=== PATIENT | female | born 2000 | race Caucasian/White ===

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

== ENCOUNTER 2019-09-08 11:34 | Emergency (ER) | payer MEDICAID ==
[~2019-09-08] VITALS: Ht 154.9 cm; Wt 48.6 kg
[2019-09-08 11:53] VITALS: BP 117/68
--- NOTE | 2019-09-08 14:33 | NUR ---
19 Y/O C/C RASH/ITCHINESS X1 DAY. PER PT DID NOT TAKE ANY MEDICINE FOR THE S/S. A:PNC,CHEETOHS. NO HX. NO RX. NO N/V/D. SITTING IN CHAIR B. STABLE.
[2019-09-08] MEDS ORDERED: DEXAMETHASONE 10 MG/ML VIAL PO ONE (15:10)
[2019-09-08] MEDS ORDERED: EPINEPHrine 1:1000 - 1 MG/ML AMP IM ONE (15:20)
[2019-09-08 16:11] VITALS: BP 120/68
--- NOTE | 2019-09-08 16:11 | NUR ---
Patient discharged with v/s stable. Written and verbal after care instructions given and explained. Patient alert, oriented and verbalized understanding of instructions. Ambulatory with steady gait. All questions addressed prior to discharge. ID band removed. Patient advised to follow up with PMD. Rx of PREDNISONE,LORATADINE,BENADRYL given. Patient educated on indication of medication including possible reaction and side effects. Opportunity to ask questions provided and answered.
== END 2019-09-08 16:11 | disposition home or self-care (01) ==
LOC: MED 11:34
DX: T78.40XA Allergy, unspecified, initial encounter (principal); Z88.1 Allergy status to other antibiotic agents; X58.XXXA Exposure to other specified factors, initial encounter
CPT/HCPCS: 96372; 99283; J0171; J1100; Q0163

== ENCOUNTER 2019-11-06 09:01 | Emergency (ER) | payer SELFPAY ==
[~2019-11-06] VITALS: Ht 154.9 cm; Wt 49.5 kg
[2019-11-06 09:03] VITALS: BP 111/63
--- NOTE | 2019-11-06 09:11 | NUR ---
Patient ambulated to bed 10 with family. RN evaluating patient at bedside.
[2019-11-06] MEDS ORDERED: diphenhydrAMINE 50 MG CAP PO ONE (09:15)
--- NOTE | 2019-11-06 09:20 | NUR ---
19 Y/F PRESENTS TO ED FOR ALLERGIC REACTION SINCE LAST NIGHT. PT REPORTS THE ONLY NEW THING SHE TOOK WAS FLONASE YESTERDAY FOR NASAL CONGESTION THAT SHE HAS HAD FOR 2 DAYS. HIVES, EDEMA AND REDNESS NOTED TO FACE, B ARMS LEGS, TORSO, B EYE SWELLING. PT REPORTS SHE TOOK BENADRYL LAST NIGHT. PT REPORTS HEAVY BREATHING. RR EVEN AND UNLABORED. LUNGS CLEAR. SKIN INTACT. RX- BENADRYL
--- NOTE | 2019-11-06 09:20 | NUR ---
PT PLACED ON PULSE OX AND 3 LEAD ECG.
--- NOTE | 2019-11-06 09:25 | NUR ---
PTS BOYFRIEND WILL BE DRIVING HER HOME. BF AT BEDSE. VS STABLE P-72, R-16 EVEN AND UNLABORED, O2-100
--- NOTE | 2019-11-06 10:13 | NUR ---
DR BAUER AT BEDSIDE
--- NOTE | 2019-11-06 10:26 | NUR ---
Patient discharged with v/s stable. Written and verbal after care instructions given and explained. Patient alert, oriented and verbalized understanding of instructions. Ambulatory with steady gait. All questions addressed prior to discharge. ID band removed. Patient advised to follow up with PMD. Rx of BEDADRYL, CLARITIN, PREDNISONE given. Patient educated on indication of medication including possible reaction and side effects. Opportunity to ask questions provided and answered. PT INSTRUCTED NOT TO DRIVE WHILE TAKING BENADRYL.
[2019-11-06 10:27] VITALS: BP 111/63
== END 2019-11-06 10:26 | disposition home or self-care (01) ==
LOC: MED 09:01
DX: L23.9 Allergic contact dermatitis, unspecified cause (principal)
CPT/HCPCS: 99283; Q0163

== ENCOUNTER 2019-11-07 00:07 | Emergency (ER) | payer SELFPAY ==
[~2019-11-07] VITALS: Ht 152.4 cm; Wt 49.4 kg
[2019-11-07 00:30] VITALS: BP 118/59
--- NOTE | 2019-11-07 00:33 | NUR ---
TO LOBBY A/W BED AMBULATORY
--- NOTE | 2019-11-07 01:48 | NUR ---
PATIENT LEFT WITHOUT BEING SEEN.
== END 2019-11-07 01:48 | disposition left against medical advice (07) ==
LOC: MED 00:07
DX: R21 Rash and other nonspecific skin eruption (principal); Z53.21 Procedure and treatment not carried out due to patient leaving prior to being seen by health care provider

== ENCOUNTER 2019-11-25 17:46 | Emergency (ER) | payer MEDICAID ==
[~2019-11-25] VITALS: Ht 152.4 cm; Wt 53.1 kg
[2019-11-25 18:13] VITALS: BP 113/62
--- NOTE | 2019-11-25 18:29 | NUR ---
19/F BIB SELF c/o bleeding per vagina , intermitent lower abdominal pain & r back pain & headache 05/13 x 3 days. piece of tissue came from vagina x 20 mins ago. LMP 09/26/19.
--- NOTE | 2019-11-25 19:02 | NUR ---
Hugh ray in [facility] - 11/25/19 at 1912 by [facility] PIECE OF TISSURE SENT TO LAB.
[2019-11-25 19:05] LABS: APPEARANCE,URINE SL CLOUDY (CLEAR); BILIRUBIN,URINE 1+ (NEGATIVE); BLOOD, URINE 3+ (NEGATIVE); COLOR,URINE YELLOW (YELLOW); LEUKOCYTE ESTERASE ,URINE NEGATIVE (NEGATIVE); NITRITE, URINE NEGATIVE (NEGATIVE); UGLUCOSE NEGATIVE (NEGATIVE)
--- NOTE | 2019-11-25 19:12 | NUR ---
PIECE OF TISSUE SENT TO LAB.
--- NOTE | 2019-11-25 19:15 | NUR ---
Pt report given to ARLEEN COHEN. Transfer of care at this time.
--- NOTE | 2019-11-25 19:17 | NUR ---
RECEIVED REPORT FROM NOEL KNAPP AND [facility].
[2019-11-25 19:48] LABS: RBC,URINE 50-80 /HPF (0-5); WBC,URINE NONE SEEN /HPF (0-5)
[2019-11-25 20:03] LABS: BASOPHILS # (AUTO) 0.1 K/uL (0.00-0.22); BASOPHILS % (AUTO) 0.8 % (0.0-2.0); EOSINOPHILS % (AUTO) 0.6 % (0.0-4.0); HEMATOCRIT 36.4 % (36-48); HEMOGLOBIN 12.2 g/dL (12.0-16.0); LYMPHOCYTES # (AUTO) 1.3 K/uL (2.5-16.5); LYMPHOCYTES % (AUTO) 20.5 % (20.5-51.1); MEAN CORPUSCULAR HEMOGLOBIN 32 pg (27-31); MEAN CORPUSCULAR HGB CONC 34 g/dL (33-37); MEAN CORPUSCULAR VOLUME 94.5 fL (80-94); MONOCYTES # (AUTO) 0.7 K/uL (0.8-1.0); MONOCYTES % (AUTO) 11.3 % (1.7-9.3); NEUTROPHILS # (AUTO) 4.3 K/uL (1.8-7.7); NEUTROPHILS % (AUTO) 66.8 % (42.2-75.2); PLATELET COUNT (AUTO) 259 K/uL (140-450); RED BLOOD CELL COUNT(AUTO) 3.85 MIL/uL (4.20-5.40); RED CELL DISTRIBUTION WIDTH 13.5 % (11.6-13.7); WHITE BLOOD COUNT (AUTO) 6.5 K/uL (4.5-11.0)
[2019-11-25 20:19] LABS: ANION GAP 11.9 (8-16); CARBON DIOXIDE 28.4 mmol/L (21-32); CREATININE 0.8 mg/dL (0.6-1.3); POTASSIUM 3.3 mmol/L (3.5-5.1)
[2019-11-25 21:40] VITALS: BP 104/63
--- NOTE | 2019-11-25 21:40 | NUR ---
Patient discharged with v/s stable. Provided with copy of labs and immaging report. Written and verbal after care instructions given and explained. Patient verbalized understanding. Ambulatory with steady gait. All questions addressed prior to discharge. Advised to follow up with PMD.
== END 2019-11-25 21:40 | disposition home or self-care (01) ==
LOC: MED 17:46
DX: O03.9 Complete or unspecified spontaneous abortion without complication (principal)
CPT/HCPCS: 36415; 76801; 80048; 81001; 81025; 84702; 85025; 86900; 86901; 88305; 99284; Q0092

== ENCOUNTER 2021-03-31 11:44 | Emergency (ER) | payer SELFPAY ==
[~2021-03-31] VITALS: Ht 160 cm; Wt 52.2 kg
[2021-03-31 11:46] VITALS: BP 129/63
--- NOTE | 2021-03-31 11:51 | NUR ---
PATIENT AMBULATED WITH STEADY GAIT TO BED 5.
--- NOTE | 2021-03-31 11:58 | NUR ---
TISH LONG AT BEDSIDE EVALUATING PT
--- NOTE | 2021-03-31 11:59 | NUR ---
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 PT RATES PAIN 9/10 THAT SHE DESCRIBES SHARP AND NONRADIATING. PT STATES PAIN IS WORSE WITH BREATHING. CAP REFILL <3 SECONDS, SPO2 100%. PT STATES THAT SHE HAS HAD INTERMITTENT CHEST PAIN X2 YRS AND STATES PAIN IS X5 WORSE AND TENDER ON PALPATION. DENIES N/V. PT A/O X4 WITH EVEN AND UNLABORED RESPIRATIONS. PT IN GOWN. NO PMH ALLERGIES: AMOXICILLIN
[2021-03-31] MEDS ORDERED: IBUPROFEN 600 MG TAB PO ONE (12:05)
--- NOTE | 2021-03-31 12:14 | NUR ---
EMT AT BEDSIDE FOR EKG
[2021-03-31] MEDS ORDERED: IBUP-1842 PO (12:56)
--- NOTE | 2021-03-31 13:10 | NUR ---
Patient discharged with v/s stable. Written and verbal after care instructions CHEST WALL PAIN given and explained. Patient alert, oriented and verbalized understanding of instructions. Ambulatory with steady gait. All questions addressed prior to discharge. ID band removed. Patient advised to follow up with PMD. Rx of IBUPROFEN given. Patient educated on indication of medication including possible reaction and side effects. Opportunity to ask questions provided and answered.
== END 2021-03-31 13:10 | disposition home or self-care (01) ==
LOC: MED 11:44
DX: S20.01XA Contusion of right breast, initial encounter (principal); X58.XXXA Exposure to other specified factors, initial encounter; Y93.89 Activity, other specified; Y92.89 Other specified places as the place of occurrence of the external cause; Y99.8 Other external cause status; Z88.1 Allergy status to other antibiotic agents
CPT/HCPCS: 71045; 71120; 93005; 99284

== ENCOUNTER 2021-07-07 15:36 | Emergency (ER) | payer SELFPAY ==
[~2021-07-07] VITALS: Ht 154.9 cm; Wt 47.4 kg
[~2021-07-07 15:36] MED LIST: IBUP-1842 PO
[2021-07-07 15:44] VITALS: BP 115/76
[2021-07-07] MEDS ORDERED: LACTATED RINGERS 2,000 ML IV ONE (16:10)
--- NOTE | 2021-07-07 17:00 | NUR ---
ULTRASOUND AT BEDSIDE
[2021-07-07 17:06] LABS: BASOPHILS # (AUTO) 0.1 K/uL (0.00-0.22); BASOPHILS % (AUTO) 0.8 % (0.0-2.0); EOSINOPHILS # (AUTO) 0.1 K/uL (0-0.4); EOSINOPHILS % (AUTO) 0.5 % (0.0-4.0); HEMOGLOBIN 13.8 g/dL (12.0-16.0); LYMPHOCYTES # (AUTO) 1.1 K/uL (2.5-16.5); LYMPHOCYTES % (AUTO) 10.7 % (20.5-51.1); MEAN CORPUSCULAR HEMOGLOBIN 32 pg (27-31); MEAN CORPUSCULAR HGB CONC 35 g/dL (33-37); MEAN CORPUSCULAR VOLUME 92.4 fL (80-94); MONOCYTES # (AUTO) 0.7 K/uL (0.8-1.0); MONOCYTES % (AUTO) 6.4 % (1.7-9.3); NEUTROPHILS # (AUTO) 8.8 K/uL (1.8-7.7); NEUTROPHILS % (AUTO) 81.6 % (42.2-75.2); PLATELET COUNT (AUTO) 319 K/uL (140-450); RED BLOOD CELL COUNT(AUTO) 4.32 MIL/uL (4.20-5.40); RED CELL DISTRIBUTION WIDTH 13.3 % (11.6-13.7); WHITE BLOOD COUNT (AUTO) 10.8 K/uL (4.8-10.8)
[2021-07-07 17:21] LABS: ALBUMIN 4.6 g/dL (3.4-5.0); ANION GAP 14.4 (8-16); CARBON DIOXIDE 24.7 mmol/L (21-32); CREATININE 0.8 mg/dL (0.6-1.3); POTASSIUM 3.1 mmol/L (3.5-5.1); TOTAL BILIRUBIN 0.8 mg/dL (0.0-1.0)
--- NOTE | 2021-07-07 17:28 | NUR ---
21/F BIB SELF WITH C/O LOWER ABDOMINAL CRAMPING AND NAUSEA AND VOMITING X2 DAYS. PATIENT STATES SHE IS APPROXIMATELY "3 WEEKS " AND STATES FOR THE LAST TWO DAYS SHE HAS HAD INTERMITTENT 8/10 ACHING LOWER ABDOMINAL PAIN ACCOMPANIED WITH EPISODES OF NAUSEA AND VOMITING. PATIENT DENIES BLOOD IN VOMIT, STATES VOMIT WAS "YELLOW" IN COLOR, DENIES CP, SOB, FEVER OR CHILLS. STATES SHE HAS HAD SOME URINARY BURNING AND LOWER BACK PAIN SINCE THIS MORNING. STATES SHE HAS NOT SEEN HER OB SINCE FINDING OUT SHE WAS .
[2021-07-07 18:47] LABS: APPEARANCE,URINE CLEAR (CLEAR); BILIRUBIN,URINE NEGATIVE (NEGATIVE); BLOOD, URINE NEGATIVE (NEGATIVE); COLOR,URINE YELLOW (YELLOW); LEUKOCYTE ESTERASE ,URINE TRACE (NEGATIVE); NITRITE, URINE NEGATIVE (NEGATIVE); UGLUCOSE NEGATIVE (NEGATIVE)
--- NOTE | 2021-07-07 18:50 | NUR ---
PATIENT AMBULATED TO RESTROOM WITH STEADY GAIT.
[2021-07-07 19:07] LABS: RBC,URINE 0-5 /HPF (0-5)
[2021-07-07 19:08] LABS: YEAST,URINE Few /HPF (None Seen)
--- NOTE | 2021-07-07 19:30 | NUR ---
Pt report given to MEGAN MENDOZA. Transfer of care at this time.
--- NOTE | 2021-07-07 19:30 | NUR ---
REPORT GIVEN TO NOEL GUZMAN FOR TRANSFER OF CARE
[2021-07-07] MEDS ORDERED: DOCO200C2 PO (19:42)
[2021-07-07] MEDS ORDERED: DOXY1TCP PO (19:42)
[2021-07-07] MEDS ORDERED: NITR100C7 PO (19:44)
[2021-07-07] MEDS ORDERED: POTASSIUM CHLORIDE 10 MEQ TABER PO ONE (19:45)
[2021-07-07 19:58] VITALS: BP 108/84
--- NOTE | 2021-07-07 19:58 | NUR ---
Patient discharged with v/s stable. Written and verbal after care instructions given and explained. Patient alert, oriented and verbalized understanding of instructions. Ambulatory with steady gait. All questions addressed prior to discharge. ID band removed. Patient advised to follow up with PMD. Rx of DHA, DICLEGIS, MACROBID given. Patient educated on indication of medication including possible reaction and side effects. Opportunity to ask questions provided and answered.
--- NOTE | 2021-07-07 20:08 | NUR ---
The patient's care was reviewed and supervised by ARLEEN GAITAN RN.
--- NOTE | 2021-07-10 19:24 | NUR ---
LATE ENTRY- LR IVF DISCONTINUED AT 190
== END 2021-07-07 19:58 | disposition home or self-care (01) ==
LOC: MED 15:36
DX: O21.9 Vomiting of pregnancy, unspecified (principal); O23.41 Unspecified infection of urinary tract in pregnancy, first trimester; E87.6 Hypokalemia; O26.891 Other specified pregnancy related conditions, first trimester; Z88.1 Allergy status to other antibiotic agents
CPT/HCPCS: 36415; 76817; 80053; 81001; 81025; 83690; 84702; 85025; 86900; 86901; 87086; 96360; 96361; 99284; J7120; Q0092

== ENCOUNTER 2022-03-15 17:53 | Emergency (ER) | payer OTHER ==
[~2022-03-15] VITALS: Ht 152.4 cm; Wt 58.1 kg
[~2022-03-15 17:53] MED LIST changes: +DOCO200C2 PO; +DOXY1TCP PO; +NITR100C7 PO
[2022-03-15 18:11] VITALS: BP 99/67
--- NOTE | 2022-03-15 20:10 | NUR ---
PT AMBULATED TO BED 9
--- NOTE | 2022-03-15 20:15 | NUR ---
22Y/O C/O OF DISCHARGE FROM SUTURE SITE FOR AND PAIN. CSECTION IN March IN [facility] ([place]). NO ANTIBIOTICS. TOOK IBUPROFEN AT HOME. DENIES N/V/D, SOB AND CHEST PAIN. A&OX4, SKIN INTACT EXCEPT INCISION, STEADY GAIT AND VITALS WNL. ALLERGY:AMOXICILLIN PMH: DENIES
[2022-03-15] MEDS ORDERED: [UNRECOGNIZED DRUG - CODE] PO (20:39)
[2022-03-15 21:00] VITALS: BP 99/67
--- NOTE | 2022-03-15 21:24 | NUR ---
Patient discharged with v/s stable. Written and verbal after care instructions given and explained. Patient alert, oriented and verbalized understanding of instructions. Ambulatory with steady gait. All questions addressed prior to discharge. ID band removed. Patient advised to follow up with PMD. Rx of MINOCYCLINE given. Patient educated on indication of medication including possible reaction and side effects. Opportunity to ask questions provided and answered.
== END 2022-03-15 21:24 | disposition home or self-care (01) ==
LOC: MED 17:53
DX: O86.00 Infection of obstetric surgical wound, unspecified (principal); Z88.1 Allergy status to other antibiotic agents; Z79.899 Other long term (current) drug therapy; Z98.890 Other specified postprocedural states
CPT/HCPCS: 99283

== ENCOUNTER 2022-09-08 20:52 | Emergency (ER) | payer MEDICAID ==
[~2022-09-08] VITALS: Ht 152.4 cm; Wt 54.4 kg
[~2022-09-08 20:52] MED LIST changes: +[UNRECOGNIZED DRUG - CODE] PO
[2022-09-08 21:05] VITALS: BP 113/73
--- NOTE | 2022-09-08 21:08 | NUR ---
TO LOBBY A/W BED AMBULATORY
[2022-09-08] MEDS ORDERED: FAMO-90 PO (21:34)
[2022-09-08] MEDS ORDERED: PRED20TA5 PO (21:34)
[2022-09-08] MEDS ORDERED: DIPH25TA53 PO (21:34)
[2022-09-08] MEDS ORDERED: predniSONE 20 MG TAB PO ONE (21:35)
[2022-09-08] MEDS ORDERED: FAMOTIDINE 20 MG TAB PO ONE (21:35)
--- NOTE | 2022-09-08 22:04 | NUR ---
PT TO BED 07. PER ADMITING PT CAME UP TO WINDOW TO SAY SHE WAS GETTING WORSE, PT HAD BEEN CALLED MULTIPLE TIMES TO BE MEDICATED WITH NO ANSWER, PT CALLED MY EMT TO BE PLACED IN BED AND NO ANSWER.
--- NOTE | 2022-09-08 22:07 | NUR ---
22 YO F BIB SELF WITH C/C OF ALLERGIC REACTION S/P EATING SYNTHETIC CHEESE X NOON. PT REPORTS 9/10 FULL BODY PAIN/STINGING. PT STATES SHE TOOK BENADRYL, HELPED A LOT THEN HIVES BEGAN TO SHOW AGAIN. PT HAS HIVES THROUGH OUT BODY. REPORTS THROAT ITCHINESS AND TIGHTNESS. PT SATING AT 99% ON ROOM AIR. ALLERGIES:AMOXICILLIN, SYNTHETIC CHEESE
--- NOTE | 2022-09-08 22:25 | NUR ---
22 Y/O F PRESENTS WITH ALLERGIC REACTION ALL OVER SINCE THIS MORNING DUE TO EATING SYNTHETIC CHEESE INSIDE OF A BURRITO FROM [facility]. PT DENIES ANY PAIN. A&OX4, SKIN INTACT. PMH-PT DENIES ALLERGIES- AMOXICILLIN, CHEETOS
--- NOTE | 2022-09-08 22:25 | NUR ---
Patient discharged with v/s stable. Written and verbal after care instructions given and explained. Patient alert, oriented and verbalized understanding of instructions. Ambulatory with steady gait. All questions addressed prior to discharge. ID band removed. Patient advised to follow up with PMD. Rx of DIPHENHYDRAMINE HCI, FAMOTIDINE, PREDNISONE given. Opportunity to ask questions provided and answered.
--- NOTE | 2022-09-08 23:10 | NUR ---
The patient's care was reviewed and supervised by Sophie Mckoy RN.
== END 2022-09-08 22:25 | disposition home or self-care (01) ==
LOC: MED 20:52
DX: L50.0 Allergic urticaria (principal)
CPT/HCPCS: 99284; J7512; Q0163

== ENCOUNTER 2023-04-14 11:10 | Emergency (ER) | payer MEDICAID ==
[~2023-04-14 11:10] MED LIST changes: +DIPH25TA53 PO; +FAMO-90 PO; +PRED20TA5 PO
== END 2023-04-14 11:56 | disposition left against medical advice (07) ==
LOC: MED 11:10
DX: R11.2 Nausea with vomiting, unspecified (principal); R10.9 Unspecified abdominal pain; Z53.21 Procedure and treatment not carried out due to patient leaving prior to being seen by health care provider

== ENCOUNTER 2023-05-08 14:41 | Emergency (ER) | payer MEDICAID ==
[~2023-05-08] VITALS: Ht 152.4 cm; Wt 49.9 kg
[2023-05-08 15:31] VITALS: BP 100/65; PULSE 81; RESP 18; TEMP 98.1; O2SAT 100
[2023-05-08 16:31] LABS: BASOPHILS # (AUTO) 0.1 K/uL (0.00-0.22); BASOPHILS % (AUTO) 0.5 % (0.0-2.0); EOSINOPHILS # (AUTO) 0.1 K/uL (0-0.4); EOSINOPHILS % (AUTO) 0.7 % (0.0-4.0); HEMATOCRIT 36.8 % (36-48); HEMOGLOBIN 12.5 g/dL (12.0-16.0); LYMPHOCYTES # (AUTO) 2.4 K/uL (2.5-16.5); MEAN CORPUSCULAR HEMOGLOBIN 31 pg (27-31); MEAN CORPUSCULAR HGB CONC 34 g/dL (33-37); MEAN CORPUSCULAR VOLUME 91.4 fL (80-94); MONOCYTES # (AUTO) 0.7 K/uL (0.8-1.0); MONOCYTES % (AUTO) 6.2 % (1.7-9.3); NEUTROPHILS # (AUTO) 7.8 K/uL (1.8-7.7); NEUTROPHILS % (AUTO) 70.6 % (42.2-75.2); PLATELET COUNT (AUTO) 287 K/uL (140-450); RED BLOOD CELL COUNT(AUTO) 4.03 MIL/uL (4.20-5.40); RED CELL DISTRIBUTION WIDTH 13.6 % (11.6-13.7)
[2023-05-08 16:57] LABS: ALBUMIN 3.5 g/dL (3.4-5.0); ANION GAP 11.3 (8-16); CALCIUM 8.7 mg/dL (8.5-10.1); CARBON DIOXIDE 27.2 mmol/L (21-32); CREATININE 0.7 mg/dL (0.6-1.3); POTASSIUM 3.5 mmol/L (3.5-5.1); TOTAL BILIRUBIN 0.2 mg/dL (0.0-1.0)
== END 2023-05-08 17:11 | disposition left against medical advice (07) ==
LOC: MED 14:41
DX: O26.891 Other specified pregnancy related conditions, first trimester (principal); R07.89 Other chest pain; R10.9 Unspecified abdominal pain; Z53.21 Procedure and treatment not carried out due to patient leaving prior to being seen by health care provider; Z3A.01 Less than 8 weeks gestation of pregnancy
CPT/HCPCS: 36415; 76801; 80053; 83880; 84484; 84702; 85025; 86901; 93005; 99281

== ENCOUNTER 2023-07-14 17:46 | Observation (INO) | payer MEDICAID ==
[2023-07-14 17:58] VITALS: BP 100/57; PULSE 71; RESP 18; TEMP 97.7
== END 2023-07-14 23:45 | disposition left against medical advice (07) ==
LOC: MLD 17:46
PROVIDERS: ADMIT Obstetrics & Gynecology; ATTEND Obstetrics & Gynecology
DX: O26.892 Other specified pregnancy related conditions, second trimester (principal); R10.9 Unspecified abdominal pain; R51.9 Headache, unspecified; O99.891 Other specified diseases and conditions complicating pregnancy; M25.512 Pain in left shoulder; Z3A.24 24 weeks gestation of pregnancy; V49.9XXA Car occupant (driver) (passenger) injured in unspecified traffic accident, initial encounter; Y93.89 Activity, other specified; Y92.89 Other specified places as the place of occurrence of the external cause; Y99.8 Other external cause status
CPT/HCPCS: 76805; G0378; G0379; Q0092

== ENCOUNTER 2024-05-21 01:38 | Emergency (ER) | payer MEDICAID, OTHER ==
[~2024-05-21] VITALS: Ht 152.4 cm; Wt 63.0 kg
[2024-05-21 01:41] VITALS: BP 140/105; PULSE 77; RESP 22; TEMP 98; O2SAT 9
[2024-05-21 01:50] VITALS: BP 140/105; PULSE 77; RESP 22; TEMP 98; O2SAT 9
[2024-05-21] MEDS ORDERED: diphenhydrAMINE 50 MG/ML VIAL ONE (02:05)
[2024-05-21] MEDS ORDERED: EPINEPHrine 1 MG/ML AMP ONE (02:05)
[2024-05-21] MEDS: diphenhydrAMINE 50 MG/ML VIAL IM ONE (02:08)
[2024-05-21] MEDS: EPINEPHrine 1 MG/ML AMP IM ONE (02:16)
[2024-05-21] MEDS: FAMOTIDINE 20 MG TAB PO ONE (03:56)
[2024-05-21] MEDS ORDERED: FAMO-90 PO (04:05)
[2024-05-21] MEDS ORDERED: DIPH25TA53 PO (04:05)
[2024-05-21] MEDS ORDERED: PRED20TA5 PO (04:05)
[2024-05-21] MEDS ORDERED: EPIN1KIT31 IM (04:05)
[2024-05-21] MEDS ORDERED: predniSONE 20 MG TAB ONE (04:11)
[2024-05-21] MEDS: predniSONE 20 MG TAB PO ONE (04:16)
== END 2024-05-21 04:26 | disposition left against medical advice (07) ==
LOC: MED 01:38
DX: T78.07XA Anaphylactic reaction due to milk and dairy products, initial encounter (principal); L50.9 Urticaria, unspecified; Z79.899 Other long term (current) drug therapy; Z88.0 Allergy status to penicillin
CPT/HCPCS: 96372; 99291; J0171; J1200; J7512

== ENCOUNTER 2024-05-23 15:46 | Emergency (ER) | payer MEDICAID ==
[~2024-05-23] VITALS: Ht 152.4 cm; Wt 61.0 kg
[~2024-05-23 15:46] MED LIST changes: +EPIN1KIT31 IM
[2024-05-23 16:05] VITALS: BP 116/67; PULSE 86; RESP 18; TEMP 97.4; O2SAT 98
[2024-05-23] MEDS ORDERED: LORA10TA19 PO (16:34)
[2024-05-23] MEDS ORDERED: FAMO-90 PO (16:34)
[2024-05-23] MEDS: LORATADINE 10 MG TAB PO ONE (16:46)
[2024-05-23 16:51] VITALS: PULSE 67; RESP 20; O2SAT 97
[2024-05-23] MEDS ORDERED: EPIN1KIT31 IM (16:51)
[2024-05-24] MEDS ORDERED: CETI10CA17 PO (14:52)
[2024-05-24] MEDS ORDERED: FAMO-92 PO (14:52)
== END 2024-05-23 16:51 | disposition home or self-care (01) ==
LOC: MED 15:46
DX: R21 Rash and other nonspecific skin eruption (principal); R22.0 Localized swelling, mass and lump, head; T78.1XXA Other adverse food reactions, not elsewhere classified, initial encounter; Z76.0 Encounter for issue of repeat prescription; Z79.899 Other long term (current) drug therapy; Z88.0 Allergy status to penicillin; X58.XXXA Exposure to other specified factors, initial encounter
CPT/HCPCS: 99283

== ENCOUNTER 2024-05-24 09:57 | Emergency (ER) | payer MEDICAID ==
[~2024-05-24] VITALS: Ht 152.4 cm; Wt 63.0 kg
[~2024-05-24 09:57] MED LIST changes: +LORA10TA19 PO
[2024-05-24 09:59] VITALS: BP 116/80; PULSE 74; RESP 20; TEMP 97.9; O2SAT 100
[2024-05-24] MEDS: DEXAMETHASONE 10 MG/ML VIAL IVP ONE (10:50)
[2024-05-24 11:24] LABS: BASOPHILS % (AUTO) 0.2 % (0.0-2.0); EOSINOPHILS % (AUTO) 0.2 % (0.0-4.0); HEMATOCRIT 40.7 % (36-48); HEMOGLOBIN 13.6 g/dL (12.0-16.0); LYMPHOCYTES # (AUTO) 2.9 K/uL (2.5-16.5); MEAN CORPUSCULAR HEMOGLOBIN 30 pg (27-31); MEAN CORPUSCULAR HGB CONC 33 g/dL (33-37); MEAN CORPUSCULAR VOLUME 89.4 fL (80-94); MONOCYTES # (AUTO) 0.6 K/uL (0.8-1.0); MONOCYTES % (AUTO) 6.9 % (1.7-9.3); NEUTROPHILS # (AUTO) 4.5 K/uL (1.8-7.7); NEUTROPHILS % (AUTO) 56.7 % (42.2-75.2); PLATELET COUNT (AUTO) 294 K/uL (140-450); RED BLOOD CELL COUNT(AUTO) 4.55 MIL/uL (4.20-5.40); RED CELL DISTRIBUTION WIDTH 13.9 % (11.6-13.7)
[2024-05-24 11:48] LABS: ANION GAP 13.4 (8-16); CALCIUM 8.7 mg/dL (8.5-10.1); CARBON DIOXIDE 26.1 mmol/L (21-32); CREATININE 1.1 mg/dL (0.6-1.3)
[2024-05-24 11:49] LABS: BILIRUBIN,DIRECT 0.1 mg/dL (0.0-0.3); TOTAL BILIRUBIN 0.5 mg/dL (0.0-1.0)
[2024-05-24 11:50] LABS: POTASSIUM 2.5 mmol/L (3.5-5.1)
[2024-05-24] MEDS: diphenhydrAMINE 50 MG/ML VIAL IVP ONE (11:55)
[2024-05-24 12:00] LABS: TOTAL PROTEIN, SERUM 7.2 g/dL (6.4-8.2)
[2024-05-24] MEDS: POTASSIUM CHLORIDE 20% 40 MEQ/15 ML UDC PO ONE (12:40)
[2024-05-24 12:45] VITALS: TEMP 97.6
[2024-05-24 14:16] LABS: APPEARANCE,URINE CLEAR (CLEAR); BILIRUBIN,URINE NEGATIVE (NEGATIVE); BLOOD, URINE NEGATIVE (NEGATIVE); COLOR,URINE YELLOW (YELLOW); LEUKOCYTE ESTERASE ,URINE NEGATIVE (NEGATIVE); NITRITE, URINE NEGATIVE (NEGATIVE); PH,URINE 6.5 (5.0-9.0); PROTEIN,URINE NEGATIVE (NEGATIVE); UGLUCOSE NEGATIVE (NEGATIVE)
[2024-05-24] MEDS ORDERED: FAMO-92 PO (14:52)
[2024-05-24] MEDS ORDERED: CETI10CA17 PO (14:52)
[2024-05-24 15:37] VITALS: BP 107/70; PULSE 74; RESP 18; O2SAT 98
== END 2024-05-24 15:37 | disposition home or self-care (01) ==
LOC: MED 09:57
DX: R21 Rash and other nonspecific skin eruption (principal); K13.0 Diseases of lips; L50.8 Other urticaria; T88.6XXA Anaphylactic reaction due to adverse effect of correct drug or medicament properly administered, initial encounter; T44.5X5A Adverse effect of predominantly beta-adrenoreceptor agonists, initial encounter; E87.6 Hypokalemia; Z79.899 Other long term (current) drug therapy; Z88.0 Allergy status to penicillin; Y92.89 Other specified places as the place of occurrence of the external cause
CPT/HCPCS: 36415; 80048; 80076; 81003; 81025; 83735; 85025; 85651; 86140; 86308; 87081; 96374; 96375; 99291; J1100; J1200; 99284